=== PATIENT | female | born 1950 | race Caucasian/White ===

== ENCOUNTER → 2016-06-02 | Outpatient (CLI) | payer MEDICARE ==
[~2016-06-02] MED LIST: CITRTAB7 PO; CO Q100C9 PO; GLUC1CAP16 PO; KETO0.5S2 RIGHT EYE; LEVO.075 PO; MAGN250T2 PO; MULT-135 PO; PRED1SUS RIGHT EYE; RANI150T PO; SYSTSOL EACH EYE; TIMO0.5S30 LEFT EYE; [UNRECOGNIZED DRUG - CODE] PO
--- NOTE | 2016-06-02 12:56 | EKG ---
Date Performed: 06/02/2016 Time Performed: 08:32:48 PTAGE: 66 years EKG: Sinus rhythm . Normal ECG PREVIOUS TRACING : 03/10/2009 08.36 Since previous tracing, no significant change noted DOCTOR: Elbert Rothman Interpretating Date/Time 06/02/2016 12:54:33
== END ==
LOC: HCAV 08:22
PROVIDERS: ATTEND Ophthalmology
DX: Z01.810 Encounter for preprocedural cardiovascular examination (principal); H25.11 Age-related nuclear cataract, right eye
CPT/HCPCS: 93005

== ENCOUNTER → 2016-06-07 | Day surgery (SDC) | payer MEDICARE ==
[~2016-06-07] VITALS: Ht 154.9 cm; Wt 61.0 kg
[~2016-06-07] MED LIST changes: +EPINEPHrine-Lidocaine/BSS (PF/SF) 4-120 mg/16 mL OPTH SYR RIGHT EYE ONE; +HYALURONIDASE/LIDOCAINE/EPINEPHRINE/BUPIVACAINE 4.5 ML SYR RIGHT EYE ONE; +HYALURONIDASE/LIDOCAINE/EPINEPHRINE/BUPIVACAINE 6 ML SYR RIGHT EYE ONE; +MIDAZOLAM HCL 2 MG/2 ML VIAL ONE; +PROPOFOL 200 MG/20 ML AMP ONE; +SODIUM CHLORID 0.9% 500 ML INJ 500 ML ONE
[2016-06-07 07:42] VITALS: BP 142/72; PULSE 59; RESP 16; TEMP 98.8; O2SAT 100
[2016-06-07 07:50] VITALS: PULSE 59
[2016-06-07] MEDS: CYCLOPENTOLATE HCL 1% OPHT SOLN 2 ML BTL RIGHT EYE SCH ×3 (08:00→08:10)
[2016-06-07] MEDS: TROPICAMIDE 1% OPHT SOLN 15 ML BTL RIGHT EYE SCH ×3 (08:00→08:10)
[2016-06-07] MEDS: TETRACAINE 0.5% OPTH SOLN 2 ML BTL RIGHT EYE SCH ×3 (08:00→08:10)
[2016-06-07] MEDS: PHENYLEPHRINE HCL 10% OPTH SOLN 5 ML BTL RIGHT EYE SCH ×3 (08:00→08:10)
[2016-06-07 08:40] VITALS: PULSE 73
[2016-06-07] MEDS: TOBRAMYCIN/DEXAMETHASONE OPTH OINT 3.5 GM TUBE ONE ×2 (09:35→09:44)
--- NOTE | 2016-06-07 10:27 | PD.OP ---
Operative Report Date of Surgery: Jun 07, 2016 Preoperative Diagnosis: (1) Nuclear sclerotic cataract of right eye Postoperative Diagnosis: (1) Pseudophakia of right eye Procedure: phacoemulsification and intraocular lens implant right eye Anesthesia: retrobulbar block, MAC Surgeon: Julissa Kay Survey Worker(s): none Operation and Findings: Patient was consented for surgery, given a retrobulbar block by anesthesia, and taken back to the operating room. She was prepped and draped in the usual sterile fashion for ophthalmic surgery. A wire lid speculum was placed in the right eye. A paracentesis incision was created at the 11 o'clock position on the limbus. Vision blue dye and viscoelastic was injected into the anterior chamber. The main incision was created at the 8 o'clock position on the limbus with a 2.4 mm keratome. A continuous curvilinear capsulorrhexis was made on the anterior lens capsule. Hydrodissection was used to separate the lens nucleus from the capsule. Phacoemulsification was used to remove the lens nucleus material. Irrigation and aspiration was used to remove the remaining cortical material. The lens implant ([id number] SN [id number]) was placed in the capsular bag. Viscoelastic was removed with irrigation and aspiration. The incisions were irrigated and found to be watertight. Tobradex ointment, a patch , and shield were placed on the right eye. The patient was sent to PACU in stable condition. Julissa Kay MD Jun 07, 2016 10:27
[2016-06-07 10:45] VITALS: BP 120/58; PULSE 77; RESP 16; TEMP 98.2; O2SAT 96
== END | disposition home or self-care (01) ==
LOC: CSDC 06:51
PROVIDERS: ATTEND Ophthalmology
DX: H25.11 Age-related nuclear cataract, right eye (principal); Z96.1 Presence of intraocular lens
CPT/HCPCS: 66984; J2250; J7040; V2632